=== PATIENT | male | born 1985 | race Caucasian/White ===

== ENCOUNTER 2017-08-16 02:31 | Emergency (ER) | payer OTHER ==
[~2017-08-16] VITALS: Ht 170.2 cm; Wt 96.2 kg
[2017-08-16 02:36] VITALS: BP 148/87
--- NOTE | 2017-08-16 02:39 | NUR ---
PT.AMBULATED TO [facility]
--- NOTE | 2017-08-16 04:05 | NUR ---
PT AMBULATED TO BED 6
--- NOTE | 2017-08-16 04:06 | NUR ---
32/M CAME IN ED, C/O 3/10 SHARP THROAT PAIN SINCE 1999, PT STATED "I SWALLOW A FISHBONE." PT REPORTS FEELING THE FISHBONE STUCK IN HIS THROAT. UNABLE TO VISUALLY SEE FOREIGN OBJECT FROM THROAT. PT DENIES MED HX, RX. NKA. PT DENIES N/V/D; SKIN IS INTACT, PINK/WARM/DRY; AAOX4, PERRL, WITH EVEN AND STEADY GAIT; LUNGS CLEAR BL, BREATHING UNLABORED; HR EVEN AND REGULAR, BL PERIPHERAL PULSES PRESENT; BS ACTIVE X4, NO TENDERNESS TO PALPATION; PT DENIES ANY FEVER, CP, SOB, OR COUGH AT THIS TIME; PT STATES 0/10 PAIN AT THIS TIME; VSS; PATIENT POSITIONED FOR COMFORT; HOB ELEVATED; BEDRAILS UP X2; BED DOWN. ER MD DR CLAYTON AWARE.
--- NOTE | 2017-08-16 05:20 | NUR ---
DR CLAYTON ATTEMPTED TO RETRIEVE FOREIGN BODY FROM THROAT, UNSUCCESSFUL DUE TO PT ATTEMPTING TO GAG AFTER EACH ATTEMPT. MD TO ORDER NUMBING SPRAY, WILL CARRY OUT.
[2017-08-16] MEDS ORDERED: BENZOCAINE/BUTAMBEN/TETRACAINE 56 GM CAN TP ONE (05:30)
[2017-08-16] MEDS ORDERED: BENZOCAINE 20% 57 GM CAN MC ONE ×2 (05:40→05:41)
--- NOTE | 2017-08-16 06:00 | NUR ---
DR CLAYTON ATTEMPTED ADMINISTERED HURRICANE SPRAY TO NUMB THROAT, UNABLE TO RETRIEVE FOREIGN BODY FROM PT'S THROAT DUE TO PT GAGGING UPON ATTEMPT. ORDERED NITRO SL, WILL CARRY OUT.
[2017-08-16] MEDS ORDERED: NITROGLYCERIN 0.4 MG TAB SL ONE ×4 (06:10→06:40)
--- NOTE | 2017-08-16 07:00 | NUR ---
DR CLAYTON AT BEDSIDE TO SPEAK WITH PT.
[2017-08-16 07:13] VITALS: BP 122/53
--- NOTE | 2017-08-16 07:13 | NUR ---
Patient discharged with v/s stable. Written and verbal after care instructions given and explained. Patient verbalized understanding. Ambulatory with steady gait. All questions addressed prior to discharge. Advised to follow up with PMD.
== END 2017-08-16 07:13 | disposition home or self-care (01) ==
LOC: MED 02:31
DX: T17.228A Food in pharynx causing other injury, initial encounter (principal); X58.XXXA Exposure to other specified factors, initial encounter; Y93.89 Activity, other specified; Y92.89 Other specified places as the place of occurrence of the external cause; Y99.8 Other external cause status
CPT/HCPCS: 99284

== ENCOUNTER 2017-08-17 17:12 | Emergency (ER) | payer OTHER ==
[~2017-08-17] VITALS: Ht 170.2 cm; Wt 95.3 kg
[2017-08-17 17:13] VITALS: BP 145/86
[2017-08-17] MEDS ORDERED: LIDOCAINE VISCOUS 2% 20 ML UDC PO ONE (19:40)
[2017-08-17 21:35] VITALS: BP 136/82
== END 2017-08-17 21:35 | disposition home or self-care (01) ==
LOC: MED 17:12
DX: R09.89 Other specified symptoms and signs involving the circulatory and respiratory systems (principal)
CPT/HCPCS: 70490; 99284